=== PATIENT | female | born 1970 | race Caucasian/White ===

== ENCOUNTER → 2016-05-30 | Outpatient (CLI) | payer BC ==
[~2016-05-30] MED LIST: ASPCH81X PO; CHOL20007 PO; GLC/500 PO; LOSA50TA6 PO; METF1TAB85 PO; MULT-506 PO; MXZC25 PO; OMEGCAP2 PO; PRVHFAIN; SERT1TAB72 PO; SERT25TA PO; ZNT/150 PO
== END | disposition home or self-care (01) ==
LOC: C.PAPS 16:30
PROVIDERS: ATTEND Obstetrics & Gynecology
DX: Z01.419 Encounter for gynecological examination (general) (routine) without abnormal findings (principal)

== ENCOUNTER → 2016-06-27 | Outpatient (CLI) | payer BC | END | disposition home or self-care (01) | LOC: C.PAPS 15:18 | PROVIDERS: ATTEND Obstetrics & Gynecology | DX: R87.612 Low grade squamous intraepithelial lesion on cytologic smear of cervix (LGSIL) (principal); R87.610 Atypical squamous cells of undetermined significance on cytologic smear of cervix (ASC-US) ==

== ENCOUNTER → 2016-06-29 | Outpatient (CLI) | payer BC ==
[2016-06-29 18:01] LABS: BLOOD UREA NITROGEN 16 mg/dl (7-18); CREATININE 0.92 mg/dl (0.60-1.20)
== END | disposition home or self-care (01) ==
LOC: C.LAB 17:03
PROVIDERS: ATTEND Obstetrics & Gynecology
DX: R19.00 Intra-abdominal and pelvic swelling, mass and lump, unspecified site (principal)

== ENCOUNTER 2016-07-05 07:52 | Inpatient (IN) | payer BC ==
--- NOTE | 2016-07-01 11:25 | HISTORY & PHYSICAL EXAMINATION ---
DATE OF ADMISSION: 05/30/2016 CHIEF COMPLAINT: Pelvic mass. HISTORY OF PRESENT ILLNESS: The patient is a 46-year-old 3, para 2. She had 1 spontaneous AB. Her general health is complicated by high blood pressure, type 2 diabetes for which she is on medications. had a vasectomy for control. Periods are regular every 28-30 days and lasts for 4-5 days. She has 1 heavy day of bleeding with flooding and cramps are mild. She recently had a low grade Pap smear and we attempted to visualize the cervix in the office and were unable to get the cervix into view. It was suspected at that time that she may have a pelvic mass pushing the cervix into an odd position. She subsequently underwent transvaginal ultrasound where she is shown to have a 6.7 x 6.6 x 4.7 cm mass in the midline behind the uterus, not cystic and appears to be either a chocolate cyst or hemorrhagic corpus luteum. She was also evaluated with a transvaginal CAT scan and the CAT scan showed no intra-abdominal fluid or no abnormal adenopathy and the CAT scan did not show any signs of a pelvic malignancy. She is presently being scheduled for total abdominal hysterectomy, bilateral salpingo-oophorectomy. She has been made aware of the risks of the surgery and the fact that postoperatively she will need to be on estrogen replacement. PAST MEDICAL HISTORY: She has 2 boys in good health. ALLERGIES: SHE IS ALLERGIC TO BACTRIM WHICH GIVES HER RASH. PAST SURGICAL HISTORY: She has had 2 C-sections. She has had her wisdom teeth removed. She had ear surgery. MEDICAL HISTORY: She has history of high blood pressure and type 2 diabetes for which she is on medications. SOCIAL HISTORY: No smoking. No excessive alcohol intake. Works for [employer]. FAMILY HISTORY: Mom at age 84. She had congestive heart failure. She has had a valve replaced. She had pericarditis. Father at age 83 of a myocardial infarction. He had been a smoker. She has 3 half-brothers, 1 half-brother of diabetes at 31 and one half brother is diabetic and he is 67. REVIEW OF SYSTEMS: She does have problems with migraines, no history of frequent or severe ear infections, nosebleed, sore throats, kidney or bladder infections. PHYSICAL EXAMINATION: GENERAL: Well-developed, well-nourished 46-year-old white female, alert, oriented x3 and cooperative in no acute distress, appears stated age. EYES: Conjunctivae are pink, sclerae white, no evidence of jaundice. EARS: Had normal light reflex bilaterally. NOSE: Had normal mucosa. Septum is midline. There were no polyps. THROAT: No erythema or evidence of infection. Teeth are in good state of repair. HEAD: Normocephalic, normal distribution of hair. NECK: Supple. Trachea midline. Thyroid is not enlarged. There is no adenopathy appreciated. Both carotids are of good intensity. CHEST: Clear to auscultation and percussion. No wheezes, rales or rhonchi appreciated. HEART: Had regular rhythm. S1 and S2 are normal. BREAST EXAMINATION: Normal. ABDOMEN: Soft and nontender. PELVIC EXAMINATION: Revealed fullness in the cul-de-sac. MUSCULOSKELETAL EXAMINATION: Revealed no calf tenderness. IMPRESSIONS OF THIS CASE: Hypertension, type 2 diabetes, status post 2 previous C-sections, status post removal of wisdom teeth, status post ear surgery and pelvic mass, suspected endometrioma.
[2016-07-01 11:41] VITALS: BMI 32.0
--- NOTE | 2016-07-01 12:14 | PAT Medication Instructions ---
Service Date July 01, 2016. Current Home Medication List Albuterol (Ventolin Hfa), Unknown Dose for ASTHMA Cholecalciferol (Vitamin D3), 5,000 INTERUNIT PO QAM Losartan Potassium (Cozaar), 50 MG PO QAM Metformin Hcl (Metformin Hcl Er), 750 MG PO QDD Multivitamin (Multivitamin), 1 TAB PO QAM Sertraline (Zoloft), Unknown Dose PO DAILY PRN for Anxiety Triamterene/Hctz (Triamterene/Hctz 37.5-25MG Tab), 1 TAB PO QAM Medication Instructions For Your Scheduled Surgery - Hold the following medications 48 hours prior to surgery: Metformin Hcl (Metformin Hcl Er), 750 MG PO QDD - Hold the following medications the morning of surgery: Triamterene/Hctz (Triamterene/Hctz 37.5-25MG Tab), 1 TAB PO QAM Cholecalciferol (Vitamin D3), 5,000 INTERUNIT PO QAM Losartan Potassium (Cozaar), 50 MG PO QAM Multivitamin (Multivitamin), 1 TAB PO QAM - Take the following medications the morning of surgery with a sip of water OTHERWISE NOTHING TO EAT OR DRINK AFTER MIDNIGHT: Albuterol (Ventolin Hfa), Unknown Dose for ASTHMA (use if needed; BRING TO HOSPITAL) Sertraline (Zoloft), Unknown Dose PO DAILY PRN for Anxiety - Take the following medications as scheduled the night before surgery: Albuterol (Ventolin Hfa), Unknown Dose for ASTHMA If you have any questions please call us at [phone] or [phone] or [phone]
--- NOTE | 2016-07-01 12:55 | DIAGNOSTIC IMAGING REPORT ---
CHEST PREADMISSION(PA/LAT) CLINICAL HISTORY: PAT preoperative evaluation COMPARISON STUDY: No previous studies for comparison. FINDINGS: The bones soft tissues and hemidiaphragms are normal. The cardiomediastinal silhouette is normal. The lungs are clear. The pulmonary vasculature is normal. IMPRESSION: Negative chest. Electronically signed by: Angel Espinosa M.D. 07/01/2016 12:54 PM Dictated Date/Time: 07/01/2016 12:53 PM
[2016-07-01 13:19] LABS: BASO % 0.2 %; BASO ABS # 0.02 K/uL (0-0.2); COMPLETE YES; EOS % 1.1 %; HEMATOCRIT 41.4 % (37-47); IG% 0.1 %; LYMPH ABS # 2.29 K/uL (1.2-3.4); MEAN CORPUSCULAR HEMOGLOBIN 29.4 pg (25-34); MEAN CORPUSCULAR HGB CONC 33.8 g/dl (32-36); MEAN PLATELET VOLUME 10.2 fL (7.4-10.4); MONO % 5.3 %; NEUT % 65.3 %; PLATELET COUNT 263 K/uL (130-400); RED BLOOD COUNT 4.76 M/uL (4.2-5.4); WHITE BLOOD COUNT 8.19 K/uL (4.8-10.8)
[2016-07-01 13:27] LABS: PREG INTERNAL NEGATIVE QC NEG CLEAR BACKGROUND; PREG INTERNAL POSITIVE QC POS CONTROL LINE
[2016-07-01 13:40] LABS: INR 0.9 (0.9-1.1); PARTIAL THROMBOPLASTIN RATIO 0.9
[2016-07-01 14:32] LABS: BUN/CREATININE RATIO 12.3 (10-20); CALCIUM 8.8 mg/dl (8.5-10.1); CREATININE 0.83 mg/dl (0.60-1.20); POTASSIUM 3.6 mmol/L (3.5-5.1)
[~2016-07-05] VITALS: Ht 172.7 cm; Wt 94.8 kg
[2016-07-05] VITALS (8 sets, daily range): BP systolic 131–181; BP diastolic 65–84; PULSE 78–101; TEMP 36.7–36.9; O2SAT 97–99; BMI 32.0
[~2016-07-05 07:52] MED LIST changes: -ASPCH81X PO; +CEFOXITIN IV 2,000 MG in DEXTROSE 5% 50ML 50 ML IV SCH; -GLC/500 PO; +LACTATED RINGER'S 1000ML 1,000 ML IV SCH; -OMEGCAP2 PO; -SERT1TAB72 PO; -ZNT/150 PO
[2016-07-05] MEDS ORDERED: ONDANSETRON INJ 2 MG/ML 2 ML VIAL ONE ×2 (09:08→11:37)
[2016-07-05] MEDS ORDERED: PROPOFOL IV EMULSION 10 MG/ML 20 ML VIAL IV ONE (09:08)
[2016-07-05] MEDS ORDERED: FENTANYL CITRATE INJ 50 MCG/1 ML 2 ML VIAL ONE ×3 (09:08→13:04)
[2016-07-05] MEDS ORDERED: ROCURONIUM BROMIDE 10 MG/ML 5 ML VIAL ONE ×2 (09:08→11:37)
[2016-07-05] MEDS ORDERED: LIDOCAINE HCL 2% 2 ML VIAL (20MG/ML) ONE (09:08)
[2016-07-05] MEDS ORDERED: MIDAZOLAM HCL 1 MG/ML 2ML VIAL ONE (09:08)
[2016-07-05] MEDS ORDERED: NEOSTIGMINE METHYLSULFATE 5 MG/5 ML SYR ONE (09:08)
[2016-07-05] MEDS ORDERED: GLYCOPYRROLATE INJ 0.2 MG/ML VIAL ONE (09:08)
--- NOTE | 2016-07-05 09:08 | History & Physical Bridge Note ---
H&P Re-Evaluation Bridge Note: I have examined the patient, reviewed the History & Physical and in the interval since the performance of the History & Physical I have noted the following changes of clinical significance: No changes noted
[2016-07-05] MEDS ORDERED: ONDANSETRON INJ 2 MG/ML 2 ML VIAL IV PRN (09:15)
[2016-07-05] MEDS ORDERED: HYDROmorphone INJ 2 MG/ML SYR/VIAL IV PRN (09:15)
[2016-07-05] MEDS ORDERED: ATROPINE SULFATE 0.1 MG/ML 5ML SYR IV PRN (09:15)
[2016-07-05] MEDS ORDERED: EpHEDrine SULFATE INJ 50 MG/ML AMP IV PRN (09:15)
[2016-07-05] MEDS ORDERED: PHENYLEPHRINE 100MCG/ML 5ML SYR IV PRN (09:15)
[2016-07-05] MEDS ORDERED: HYDROmorphone INJ 2 MG/ML SYR/VIAL ONE ×2 (11:07→14:16)
[2016-07-05] MEDS ORDERED: SURGICEL ABSORB HEMOSTAT 2IN X 14IN TOP ONE (12:56)
[2016-07-05] MEDS ORDERED: SENNA 8.6 MG TAB PO PRN (13:45)
[2016-07-05] MEDS ORDERED: MAGNESIUM HYDROXIDE SUSP 30 ML UDC PO PRN (13:45)
[2016-07-05] MEDS ORDERED: BISACODYL 10 MG SUPP PR PRN (13:45)
[2016-07-05] MEDS ORDERED: MEPERIDINE HCL 50 MG/ML CARP IV PRN ×2 (13:45)
--- NOTE | 2016-07-05 13:48 | [facility] Post Operative Brief Note ---
Immediate Operative Summary Operative Date July 05, 2016. Pre-Operative Diagnosis Pelvic mass, suspected endometrioma. Post-Operative Diagnosis Same as preop. Procedure(s) Performed Total Abdominal Hysterectomy, Bilateral Salpingo-Oophorectomy Surgeon Dr. Jennings Chrome Plater Surgeon(s) Dr. Shafer Estimated Blood Loss 250 ML Findings large benign cervical mass Specimens F.S. #1: Uterus, cervix, bilateral tubes and ovaries. *Focus mainly on cervix * (sent at 1210) Complication(s) None Disposition Recovery Room / PACU
--- NOTE | 2016-07-05 14:00 | OPERATIVE REPORT ---
DATE OF OPERATION: 07/05/2016 INDICATIONS FOR SURGERY: Large benign cervical lesion. PREOPERATIVE DIAGNOSIS: Benign cervical lesion of uncertain etiology. POSTOPERATIVE DIAGNOSIS: Same, frozen section and exam by the pathologist revealed the lesion to be benign. PROCEDURE: Total abdominal hysterectomy, bilateral salpingo-oophorectomy. SURGEON: Dr. Jennings. GAGE DESIGNER: Dr. Shafer. ESTIMATED BLOOD LOSS: 300 mL. ANESTHESIA: General. OPERATIVE FINDINGS AND PROCEDURE: The patient was brought to the OR table, correctly identified by armband and conversation. Vaginal mucosa was prepped with Betadine prep, Vargas catheter was inserted aseptically in the bladder and connected to gravity drainage. Compression stockings were applied. Lower abdomen was then painted with an alcohol based sterilizing solution, draped in the usual sterile fashion. We looked at the body habitus of the patient and the lesion was deep in the pelvis and felt that we needed to go through a midline incision. Subsequently made a midline incision carried down to the anterior fascia by sharp dissection. Hemostasis was secured by electrocauterization. Peritoneum was carefully raised and entered. Then, we used a Bookwalter retractor to retract the intestines and provide adequate exposure of the pelvic cavity. There were no dense adhesions even though she had had 2 previous sections and ovaries appeared normal. There was a large 5-6 cm bulbous lesion of the cervix which extended really all the way down to the cervical cuff. I started out by isolating the infundibulopelvic ligaments as they came off from the lateral pelvic wall and then doubly ligated distal stump and then ligating the proximal stump cutting the attachment of the ovary free on both sides and ligating the round ligament in the same fashion, 2 distal sutures, 1 proximal suture with a tag. We then opened the peritoneum over the lesion and shelled the lesion outside the peritoneum by blunt and sharp dissection. We eventually identified and tagged the ureter on the left side. We then grabbed the uterine arteries close to the junction of the uterus and the cervix on either side, cut with a stump and then doubly ligated with a chromic gut suture. We advanced the bladder out of the operative field. Some of the anatomy was distorted by the size of the cervix and then carefully slid off the lesion laterally on either side, clamping segments of the cardinal ligament cutting with a stump and ligated with a transfixion suture of chromic catgut, eventually we got into the vaginal cuff on the patient's left side and was able to take the incision around the lesion, cut through the vaginal cuff and thus excised the surgical specimen of large cervical lesion along with the uterus, tubes, and both ovaries. We then tagged the angles of the vaginal cuff with a straight and then ligated the angles of the vaginal cuff to the stumps of the cardinal ligaments on either side, then did a [id number] suture to close the cuff and then did another jewnni-zw-fhehj suture and then ran the rest of the cuff with a continuous chromic gut suture, placed a Bruna drain with a safety pin into the vagina and the other end into the cuff. We had some bleeding on the left pelvic wall, we had to isolate several bleeders then tie and cauterize them. As previously stated ureter on that side was dissected free and located away from any of the suturing. We then used Surgicel to pack the area to create good hemostasis. We then elevated the cuff by bringing down the round ligaments and suture ligating them to the cuff and then we reapproximated the peritoneum with a continuous chromic gut suture. At the end a Bruna drain was in the cul-de-sac. We washed the pelvis clean, removed all packs, pack count was good. We did a careful approximation of the anterior abdominal wall. Peritoneum was closed with a chromic gut suture. Recti muscles were approximated with interrupted [id number] sutures of PDS. SubQ was approximated with a running plain and the skin edges were approximated with a mattress suture of nylon and then the skin edges were approximated with staple clips. I attest to the content of the Intraoperative Record and any orders documented therein. Any exceptio ns are noted below.
--- NOTE | 2016-07-05 14:45 | Anesthesiology Progress Note ---
Anesthesia Post Op Note Date & Time July 05, 2016 at 14:45 Vital Signs Pain Intensity: 1 Vital Signs Past 12 Hours Date Time Temp Pulse Resp B/P Pulse Ox O2 Delivery O2 Flow Rate FiO2 07/05/16 14:42 142/88 07/05/16 14:39 82 10 98 07/05/16 14:39 84 10 07/05/16 14:38 36.6 87 16 142/88 97 Nasal Cannula 2 07/05/16 14:37 149/80 07/05/16 14:34 84 7 07/05/16 14:34 83 7 99 07/05/16 14:33 82 11 07/05/16 14:33 81 11 100 07/05/16 14:32 175/84 07/05/16 14:28 81 11 07/05/16 14:28 81 11 100 07/05/16 14:27 142/84 07/05/16 14:23 83 8 100 07/05/16 14:23 81 8 07/05/16 14:22 167/75 07/05/16 14:18 88 13 100 07/05/16 14:18 87 13 07/05/16 14:17 178/77 07/05/16 14:13 93 19 100 07/05/16 14:13 94 19 07/05/16 14:12 163/84 07/05/16 14:08 78 10 07/05/16 14:08 78 10 100 07/05/16 14:06 175/78 07/05/16 14:03 88 10 07/05/16 14:03 88 10 182/91 100 07/05/16 14:02 188/81 07/05/16 13:58 84 9 100 07/05/16 13:58 85 9 07/05/16 13:57 179/93 07/05/16 13:54 174/89 07/05/16 13:53 92 36 07/05/16 13:53 92 36 99 07/05/16 13:53 37.0 82 12 174/89 100 Mask 10 07/05/16 08:18 36.9 79 18 131/65 97 Room Air Notes Mental Status: alert / awake / arousable, participated in evaluation Pt Amnestic to Procedure: Yes Nausea / Vomiting: adequately controlled Pain: adequately controlled Airway Patency, RR, SpO2: stable & adequate BP & HR: stable & adequate Hydration State: stable & adequate Anesthetic Complications: no major complications apparent
[2016-07-05] MEDS ORDERED: D5W AND LACTATED RINGERS 1,000 ML IV SCH (15:49)
[2016-07-05] MEDS ORDERED: NURSING VERBAL MED ORDER ONE ×2 (16:45→20:00)
[2016-07-05] MEDS: LACTATED RINGER'S 1000ML 1,000 ML IV SCH (17:13)
[2016-07-05] MEDS: ONDANSETRON INJ 2 MG/ML 2 ML VIAL IV PRN ×2 (17:37→23:44)
[2016-07-05] MEDS: KETOROLAC TROMETHAMINE 30 MG/ML VIAL IV. PRN ×2 (17:37→23:45)
[2016-07-05] MEDS ORDERED: ONDANSETRON INJ 2 MG/ML 2 ML VIAL IV ONE (19:45)
[2016-07-05] MEDS ORDERED: NovoLOG PER UNIT CHARGE SC SCH (20:15)
[2016-07-05] MEDS ORDERED: INSULIN ASPART 100 UNITS/ML 3 ML PEN SC SCH (20:15)
--- NOTE | 2016-07-05 20:20 | Medical Consult ---
Consultation Date of Consultation: July 05, 2016. Attending Physician: Carlos Jennings M.D. Reason for Consultation: Dm control History of Present Illness This is a 46 yo f that that is POD0 s/p open total hysterectomy and bilat salpingo oophorectomy for suspicion of endometrioma that we have been requested to assist in her post operative medical management. Patient states that she typically only has to take a single extended release dose of her Metformin in order to control her blood sugars reasonably well. She was originally diagnosed with DM " years ago" . Her blood pressure is also well controlled with her HTN medications losartan and triamterene. she has a history of depression which she is managing currently without any medications. She has no history of any [place]/ Stroke. She is feeling generally well post operatively aside from her nausea. Past Medical/Surgical History Medical Problems: (1) Asthma, Unspecified Status: Chronic (2) Diab Kristin Wo Compl, Type Ii Or Unspec Type, Uncontrolled Status: Chronic (3) Hypertension Nos Status: Chronic (4) Pure Hypercholesterolem Status: Chronic Family History No significant family history Social History Smoking Status: Never Smoker Smokeless Tobacco Use: No Marital Status: Housing Status: lives with family Occupation Status: employed Allergies Coded Allergies: Sulfamethoxazole w/Trimethoprim (Verified Allergy, Mild, rash, 07/05/16) Molds and Smuts (Verified Allergy, Unknown, OUTDOOR MOLD-SNEEZING,COUGHING , 07/05/16) Current Inpatient Medications Current Inpatient Medications Medications (Trade) Dose Ordered Sig/Roz Route Start Time Stop Time Status Last Admin Dose Admin Lactated Ringer's (Lr 1000ml) 1,000 ml @ 15 mls/hr Q24H IV 07/05/16 06:00 07/06/16 05:59 07/05/16 08:50 15 MLS/HR Ketorolac Tromethamine (Toradol Inj) 30 mg Q6H PRN IV. 07/05/16 13:45 07/10/16 13:44 07/05/16 17:37 30 MG Meperidine HCl (Demerol Inj) 50 mg Q4H PRN IV 07/05/16 13:45 07/19/16 13:44 Meperidine HCl (Demerol Inj) 75 mg Q4H PRN IV 07/05/16 13:45 07/19/16 13:44 Oxycodone/ Acetaminophen (Percocet 5-325mg Tab) 1 tab for pain scale 1-5 2 t... Q4H PRN PO 07/05/16 13:45 07/19/16 13:44 Ibuprofen (Motrin Tab) 600 mg Q4H PRN PO 07/05/16 13:45 08/04/16 13:44 Ondansetron HCl (Zofran Inj) 4 mg Q4H PRN IV 07/05/16 13:45 08/04/16 13:44 07/05/16 17:37 4 MG Bisacodyl (Dulcolax Supp) 10 mg DAILY PRN [place] 07/05/16 13:45 08/04/16 13:44 Magnesium Hydroxide (Milk Of Magnesia Susp) 30 ml HS PRN PO 07/05/16 13:45 08/04/16 13:44 Senna (Senokot Tab) 17.2 mg HS PRN PO 07/05/16 13:45 08/04/16 13:44 Losartan Potassium (coZAAR TAB) 50 mg QAM PO 07/06/16 09:00 08/05/16 08:59 Triamterene/HCTZ 1 tab 1 tab QAM PO 07/06/16 09:00 08/05/16 08:59 Lactated Ringer's (Lr 1000ml) 1,000 ml @ 125 mls/hr Q8H IV 07/05/16 17:00 08/04/16 16:59 07/05/16 17:13 125 MLS/HR Multivitamins (Multivitamin Tab) 1 tab QAM PO 07/06/16 09:00 08/05/16 08:59 Insulin Aspart (novoLOG ASPART) SLIDING SCALE G... ACHS SC 07/05/16 22:00 08/04/16 21:59 Insulin Aspart (novoLOG ASPART) 2 units TODAY@2014 [place] 07/05/16 20:15 07/05/16 22:00 Review of Systems Constitutional: No fever Eyes: No worsening of vision Respiratory: No cough, No dyspnea at rest, No dyspnea on exertion, No shortness of breath, No sputum, No wheezing Cardiovascular: No chest pain Abdomen: + nausea, + pain (from wound), + vomiting, No constipation, No diarrhea Musculoskeletal: No joint pain, No muscle pain Psychiatric: No depression symptoms Endocrine: No fatigue Physical Exam Date Time Temp Pulse Resp B/P Pulse Ox O2 Delivery O2 Flow Rate FiO2 07/05/16 19:30 36.7 78 20 134/78 98 Room Air 07/05/16 18:03 36.9 86 16 149/80 99 Nasal Cannula 2.0 07/05/16 16:56 36.9 91 16 162/82 98 Nasal Cannula 2.0 07/05/16 16:00 36.7 95 16 161/84 99 Nasal Cannula 2.0 07/05/16 15:30 36.8 92 16 150/79 98 Nasal Cannula 2.0 07/05/16 15:07 97 Nasal Cannula 2.0 07/05/16 15:07 36.8 101 15 181/80 97 Nasal Cannula 2.0 07/05/16 14:53 96 9 98 07/05/16 14:53 95 9 07/05/16 14:52 129/80 07/05/16 14:50 136/78 07/05/16 14:48 89 10 98 07/05/16 14:48 87 10 07/05/16 14:46 140/80 07/05/16 14:43 86 6 07/05/16 14:43 84 6 98 07/05/16 14:42 142/88 07/05/16 14:39 82 10 98 07/05/16 14:39 84 10 07/05/16 14:38 36.6 87 16 142/88 97 Nasal Cannula 2 07/05/16 14:37 149/80 07/05/16 14:34 84 7 07/05/16 14:34 83 7 99 07/05/16 14:33 82 11 07/05/16 14:33 81 11 100 07/05/16 14:32 175/84 07/05/16 14:28 81 11 07/05/16 14:28 81 11 100 07/05/16 14:27 142/84 07/05/16 14:23 83 8 100 07/05/16 14:23 81 8 07/05/16 14:22 167/75 07/05/16 14:18 88 13 100 07/05/16 14:18 87 13 07/05/16 14:17 178/77 07/05/16 14:13 93 19 100 07/05/16 14:13 94 19 07/05/16 14:12 163/84 07/05/16 14:08 78 10 07/05/16 14:08 78 10 100 07/05/16 14:06 175/78 07/05/16 14:03 88 10 07/05/16 14:03 88 10 182/91 100 07/05/16 14:02 188/81 07/05/16 13:58 84 9 100 07/05/16 13:58 85 9 07/05/16 13:57 179/93 07/05/16 13:54 174/89 07/05/16 13:53 92 36 07/05/16 13:53 92 36 99 07/05/16 13:53 37.0 82 12 174/89 100 Mask 10 07/05/16 08:18 36.9 79 18 131/65 97 Room Air General Appearance: no apparent distress Head: normocephalic, atraumatic Eyes: normal inspection ENT: normal ENT inspection Neck: supple Respiratory/Chest: normal breath sounds, no respiratory distress, no accessory muscle use Cardiovascular: regular rate, rhythm, no murmur Abdomen/GI: normal bowel sounds, + pertinent finding (dressing noted midline, abd is soft to palpation and tender surrounding the incision site) Back: normal inspection Extremities/Musculoskelatal: no calf tenderness, no pedal edema, + pertinent finding (SCD in place) Neurologic/Psych: alert, normal mood/affect, oriented x 3 Skin: normal color, warm/dry, no rash Lymphatic: no adenopathy Laboratory Results Last 24 Hours Test 07/05/16 08:16 07/05/16 14:15 07/05/16 19:43 Bedside Glucose 182 mg/dl 207 mg/dl 259 mg/dl Assessment & Plan This is a 46 yo f POD 0 s/p open ANUP BSO for suspected endometria which we are assisting in post op medical management S/P Open ANUP BSO - pain management per primary team DMII - insulin ISS - metformin held HTN - continue home dose of losartan and Triamterene DVT prophylaxis SCD in place per primary team Additional Copies To Carla Wilde C.R.N.P Assessment and Plan Attending Addendum: I have physically seen and examined this patient, have directed their medical care, have supervised the medical residents activities, and agree with the H&P as noted above, with the following changes: NONE
[2016-07-05] MEDS: INSULIN ASPART 100 UNITS/ML 3 ML PEN SC SCH (22:18)
[2016-07-06] MEDS ORDERED: INSULIN ASPART 100 UNITS/ML 3 ML PEN SC STA (00:20)
[2016-07-06] MEDS ORDERED: NURSING VERBAL MED ORDER ONE (00:30)
[2016-07-06] MEDS: LACTATED RINGER'S 1000ML 1,000 ML IV SCH ×3 (00:34→17:00)
[2016-07-06 04:20] VITALS: BP 109/74; PULSE 89; TEMP 37; O2SAT 98
[2016-07-06] MEDS: KETOROLAC TROMETHAMINE 30 MG/ML VIAL IV. PRN (06:15)
[2016-07-06] MEDS ORDERED: PHARMACY GLYCEMIC MGMT CONSULT PRN (07:07)
[2016-07-06 07:08] LABS: BASO % 0.1 %; BASO ABS # 0.01 K/uL (0-0.2); COMPLETE YES; EOS % 0.1 %; HEMATOCRIT 29.7 % (37-47); IG% 0.3 %; LYMPH % 19.3 %; LYMPH ABS # 2.12 K/uL (1.2-3.4); MEAN CELL VOLUME 87.4 fL (80-100); MEAN CORPUSCULAR HGB CONC 34.3 g/dl (32-36); MEAN PLATELET VOLUME 9.9 fL (7.4-10.4); MONO % 8.2 %; PLATELET COUNT 223 K/uL (130-400); WHITE BLOOD COUNT 10.99 K/uL (4.8-10.8)
[2016-07-06 07:35] VITALS: BP 123/78; PULSE 84; TEMP 36.9; O2SAT 98
[2016-07-06] MEDS: MULTIVITAMIN TAB PO SCH (08:31)
[2016-07-06] MEDS: TRIAMTERENE/HCTZ 37.5/25MG TAB PO SCH (08:31)
[2016-07-06] MEDS: LOSARTAN POTASSIUM 50 MG TAB PO SCH (08:32)
[2016-07-06] MEDS: INSULIN ASPART 100 UNITS/ML 3 ML PEN SC SCH ×4 (08:37→22:31)
[2016-07-06] MEDS ORDERED: GLUCOSE 10 TABS/TUBE PO PRN (10:00)
[2016-07-06] MEDS ORDERED: GLUCOSE 40% GEL 15 GM TUBE PO PRN (10:00)
[2016-07-06] MEDS ORDERED: DEXTROSE 50% 50 ML SYR IV PRN (10:00)
[2016-07-06] MEDS ORDERED: GLUCAGON FOR INJ 1 MG VIAL SQ PRN (10:00)
--- NOTE | 2016-07-06 10:18 | Progress Note ---
Subjective July 06, 2016. Subjective conversation w/ patient Ambulation: limited ambulation Voiding: isbell catheter in place Passing Gas: Yes Diet Tolerance: Clear Liquids Review of Systems Constitutional: + fever Objective Vital Signs Date Time Temp Pulse Resp B/P Pulse Ox O2 Delivery O2 Flow Rate FiO2 07/06/16 07:35 Room Air 07/06/16 07:35 36.9 84 16 123/78 98 Room Air 07/06/16 04:20 37.0 89 16 109/74 98 Room Air 07/05/16 23:50 Room Air 07/05/16 23:50 36.8 86 18 133/81 98 Room Air 07/05/16 19:30 36.7 78 20 134/78 98 Room Air 07/05/16 18:03 36.9 86 16 149/80 99 Nasal Cannula 2.0 07/05/16 16:56 36.9 91 16 162/82 98 Nasal Cannula 2.0 07/05/16 16:00 36.7 95 16 161/84 99 Nasal Cannula 2.0 07/05/16 15:30 36.8 92 16 150/79 98 Nasal Cannula 2.0 07/05/16 15:07 97 Nasal Cannula 2.0 07/05/16 15:07 36.8 101 15 181/80 97 Nasal Cannula 2.0 07/05/16 14:53 96 9 98 07/05/16 14:53 95 9 07/05/16 14:52 129/80 07/05/16 14:50 136/78 07/05/16 14:48 89 10 98 07/05/16 14:48 87 10 07/05/16 14:46 140/80 07/05/16 14:43 86 6 07/05/16 14:43 84 6 98 07/05/16 14:42 142/88 07/05/16 14:39 82 10 98 07/05/16 14:39 84 10 07/05/16 14:38 36.6 87 16 142/88 97 Nasal Cannula 2 07/05/16 14:37 149/80 07/05/16 14:34 84 7 07/05/16 14:34 83 7 99 07/05/16 14:33 82 11 07/05/16 14:33 81 11 100 07/05/16 14:32 175/84 07/05/16 14:28 81 11 07/05/16 14:28 81 11 100 07/05/16 14:27 142/84 07/05/16 14:23 83 8 100 07/05/16 14:23 81 8 07/05/16 14:22 167/75 07/05/16 14:18 88 13 100 07/05/16 14:18 87 13 07/05/16 14:17 178/77 07/05/16 14:13 93 19 100 07/05/16 14:13 94 19 07/05/16 14:12 163/84 07/05/16 14:08 78 10 07/05/16 14:08 78 10 100 07/05/16 14:06 175/78 07/05/16 14:03 88 10 07/05/16 14:03 88 10 182/91 100 07/05/16 14:02 188/81 07/05/16 13:58 84 9 100 07/05/16 13:58 85 9 07/05/16 13:57 179/93 07/05/16 13:54 174/89 07/05/16 13:53 92 36 07/05/16 13:53 92 36 99 07/05/16 13:53 37.0 82 12 174/89 100 Mask 10 Physical Exam General Appearance: WELL-APPEARING Respiratory/Chest: lungs clear Abdomen: normal bowel sounds, non tender Incision Description: Clean, Dry & Intact Extremities: no pedal edema, no calf tenderness Laboratory Results Last 24 Hours Test 07/05/16 14:15 07/05/16 19:43 07/05/16 22:04 07/06/16 00:09 Bedside Glucose 207 mg/dl 259 mg/dl 243 mg/dl 223 mg/dl Test 07/06/16 04:20 07/06/16 06:50 07/06/16 07:41 Bedside Glucose 192 mg/dl 176 mg/dl White Blood Count 10.99 K/uL Red Blood Count 3.40 M/uL Hemoglobin 10.2 g/dL Hematocrit 29.7 % Mean Corpuscular Volume 87.4 fL Mean Corpuscular Hemoglobin 30.0 pg Mean Corpuscular Hemoglobin Concent 34.3 g/dl Platelet Count 223 K/uL Mean Platelet Volume 9.9 fL Neutrophils (%) (Auto) 72.0 % Lymphocytes (%) (Auto) 19.3 % Monocytes (%) (Auto) 8.2 % Eosinophils (%) (Auto) 0.1 % Basophils (%) (Auto) 0.1 % Neutrophils # (Auto) 7.92 K/uL Lymphocytes # (Auto) 2.12 K/uL Monocytes # (Auto) 0.90 K/uL Eosinophils # (Auto) 0.01 K/uL Basophils # (Auto) 0.01 K/uL RDW Standard Deviation 45.0 fL RDW Coefficient of Variation 14.2 % Immature Granulocyte % (Auto) 0.3 % Immature Granulocyte # (Auto) 0.03 K/uL Nucleated RBC Absolute Count (auto) 0.05 K/uL Nucleated Red Blood Cells % 0.5 % Assessment and Plan Problem List Medical Problems: (1) Asthma, Unspecified Status: Chronic (2) Diab Kristin Wo Compl, Type Ii Or Unspec Type, Uncontrolled Status: Chronic (3) Hypertension Nos Status: Chronic (4) Pure Hypercholesterolem Status: Chronic Post-Op Day#: 1
[2016-07-06] MEDS: INSULIN GLARGINE SOLOSTAR 100 UNITS/ML 3 ML PEN SC SCH (10:52)
[2016-07-06 11:14] VITALS: BMI 31.8
[2016-07-06 11:26] VITALS: BP 122/76; PULSE 80; TEMP 37; O2SAT 98
[2016-07-06] MEDS: OXYCODONE/ACETAMINOPHEN 5-325 TAB PO PRN ×4 (11:37→23:59)
--- NOTE | 2016-07-06 14:41 | Pharmacy Progress Note ---
Glycemic Control Intl Consult Date of Service July 06, 2016. Scope Glycemic Pharmacist consulted by Dr Lacey on 07/06/16 for glycemic control and to write orders per [facility] inpatient glycemic control protocol Objective Weight (Kilograms): 94.800 Accuchecks BSG (last 24hrs): Test 07/05/16 19:43 07/05/16 22:04 07/06/16 00:09 07/06/16 04:20 Bedside Glucose 259 mg/dl (70-90) 243 mg/dl (70-90) 223 mg/dl (70-90) 192 mg/dl (70-90) Test 07/06/16 07:41 07/06/16 11:22 Bedside Glucose 176 mg/dl (70-90) 136 mg/dl (70-90) Laboratory Data (last 24hrs) Test 07/06/16 06:50 White Blood Count 10.99 K/uL Red Blood Count 3.40 M/uL Hemoglobin 10.2 g/dL Hematocrit 29.7 % Mean Corpuscular Volume 87.4 fL Mean Corpuscular Hemoglobin 30.0 pg Mean Corpuscular Hemoglobin Concent 34.3 g/dl Platelet Count 223 K/uL Mean Platelet Volume 9.9 fL Neutrophils (%) (Auto) 72.0 % Lymphocytes (%) (Auto) 19.3 % Monocytes (%) (Auto) 8.2 % Eosinophils (%) (Auto) 0.1 % Basophils (%) (Auto) 0.1 % Neutrophils # (Auto) 7.92 K/uL Lymphocytes # (Auto) 2.12 K/uL Monocytes # (Auto) 0.90 K/uL Eosinophils # (Auto) 0.01 K/uL Basophils # (Auto) 0.01 K/uL Recent Pertinent Medications Outpatient Anti-diabetic Regimen: * Metformin 750 mg ER daily * A1c =- orderer Risk Factors for Insulin Resistance: * Recent Surgery - POD #1 hysterectomy * Diet: T2DM Assessment & Plan ASSESSMENT: * ADA & AACE recommend a goal blood sugar range 140-180 mg/dl for the majority of critically ill & non-critically ill patients. However, more stringent targets may be selected in individual cases. * 46 year old T2DM female with hyperglycemia s/p hysterectomy - unknown outpatient control, A1c ordered * Pt is maintained on oral antidiabetic agents as an outpatient * Will hold oral agents for admission and utilize SQ basal bolus insulin regimen which is the recommended regimen for inpatient glycemic control. * Will initiate weight based insulin dosing for insulin narda patient and titrate based on BSG trends. PLAN FOR INPATIENT GLYCEMIC CONTROL: * Holding metformin * Basal insulin with LANTUS 20 units SQ daily * Correctional Insulin with NOVOLOG per scale ACHS * Goal Range: Low 120 mg/dL - High 160 mg/dL * Correction Factor: 25 mg/dL/unit * Nutritional / Prandial insulin per carb ratio of 1 unit per 10 grams CHO consumed * Please note that the plan above was derived based on current level of insulin resistance and hospital stress. These recommendations are appropriate for inpatient admission only. Plan of care upon discharge will need to be reassessed to avoid potential outpatient hypo/hyperglycemia. Thank you.
[2016-07-06 15:35] VITALS: BP 134/77; PULSE 86; TEMP 36.9; O2SAT 100
--- NOTE | 2016-07-06 16:15 | Progress Note ---
Progress Note Date of Service July 06, 2016. Progress Note blood pressure and glucose reviewed, all acceptable, glycemic management consult engaged.
[2016-07-06] MEDS: IBUPROFEN 600 MG TAB PO PRN (17:44)
[2016-07-06 19:50] VITALS: BP 112/70; PULSE 86; TEMP 37.2; O2SAT 96
[2016-07-06 23:45] VITALS: BP 112/72; PULSE 72; TEMP 36.5; O2SAT 96
[2016-07-07 04:10] VITALS: BP 131/82; PULSE 86; TEMP 36.9; O2SAT 96
[2016-07-07] MEDS: OXYCODONE/ACETAMINOPHEN 5-325 TAB PO PRN ×5 (04:18→21:51)
[2016-07-07 07:15] LABS: BASO % 0.2 %; BASO ABS # 0.02 K/uL (0-0.2); COMPLETE YES; EOS % 1.5 %; HEMATOCRIT 31.7 % (37-47); IG% 0.1 %; LYMPH % 10.9 %; LYMPH ABS # 1.19 K/uL (1.2-3.4); MEAN CORPUSCULAR HEMOGLOBIN 28.9 pg (25-34); MEAN CORPUSCULAR HGB CONC 32.5 g/dl (32-36); MEAN PLATELET VOLUME 9.7 fL (7.4-10.4); MONO % 5.5 %; NEUT % 81.8 %; PLATELET COUNT 194 K/uL (130-400); RED BLOOD COUNT 3.56 M/uL (4.2-5.4); WHITE BLOOD COUNT 10.88 K/uL (4.8-10.8)
[2016-07-07 07:50] LABS: ESTIMATED AVERAGE GLUCOSE 171 mg/dl; HA1C FLAG Normal (Normal)
[2016-07-07 08:00] VITALS: BP 118/79; PULSE 80; TEMP 36.8; O2SAT 97
[2016-07-07] MEDS: INSULIN ASPART 100 UNITS/ML 3 ML PEN SC SCH ×4 (08:21→22:30)
[2016-07-07] MEDS: LOSARTAN POTASSIUM 50 MG TAB PO SCH (08:24)
[2016-07-07] MEDS: MULTIVITAMIN TAB PO SCH (08:24)
[2016-07-07] MEDS: TRIAMTERENE/HCTZ 37.5/25MG TAB PO SCH (08:24)
--- NOTE | 2016-07-07 08:42 | Progress Note ---
Subjective Jul 07, 2016. Subjective conversation w/ patient Ambulation: ambulating normally Voiding: no voiding problems, isbell catheter in place Passing Gas: Yes Diet Tolerance: Regular Diet Review of Systems Constitutional: + fever Objective Vital Signs Date Time Temp Pulse Resp B/P (MAP) Pulse Ox O2 Delivery O2 Flow Rate FiO2 07/07/16 04:10 36.9 86 18 131/82 (98) 96 Room Air 07/06/16 23:45 96 Room Air 07/06/16 23:45 36.5 72 20 112/72 (85) 96 Room Air 07/06/16 19:50 37.2 86 20 112/70 (84) 96 Room Air 07/06/16 15:40 Room Air 07/06/16 15:35 36.9 86 16 134/77 (96) 100 Room Air 07/06/16 11:26 37.0 80 16 122/76 (91) 98 Room Air Physical Exam General Appearance: WELL-APPEARING Respiratory/Chest: lungs clear Abdomen: normal bowel sounds, non tender Incision Description: Clean, Dry & Intact Extremities: no pedal edema, no calf tenderness Laboratory Results Last 24 Hours Test 07/06/16 11:22 07/06/16 17:13 07/06/16 22:08 07/07/16 07:00 Bedside Glucose 136 mg/dl 156 mg/dl 169 mg/dl White Blood Count 10.88 K/uL Red Blood Count 3.56 M/uL Hemoglobin 10.3 g/dL Hematocrit 31.7 % Mean Corpuscular Volume 89.0 fL Mean Corpuscular Hemoglobin 28.9 pg Mean Corpuscular Hemoglobin Concent 32.5 g/dl Platelet Count 194 K/uL Mean Platelet Volume 9.7 fL Neutrophils (%) (Auto) 81.8 % Lymphocytes (%) (Auto) 10.9 % Monocytes (%) (Auto) 5.5 % Eosinophils (%) (Auto) 1.5 % Basophils (%) (Auto) 0.2 % Neutrophils # (Auto) 8.90 K/uL Lymphocytes # (Auto) 1.19 K/uL Monocytes # (Auto) 0.60 K/uL Eosinophils # (Auto) 0.16 K/uL Basophils # (Auto) 0.02 K/uL RDW Standard Deviation 46.6 fL RDW Coefficient of Variation 14.2 % Immature Granulocyte % (Auto) 0.1 % Immature Granulocyte # (Auto) 0.01 K/uL Estimated Average Glucose 171 mg/dl Hemoglobin A1c 7.6 % Test 07/07/16 07:45 Bedside Glucose 199 mg/dl Assessment and Plan Problem List Medical Problems: (1) Asthma, Unspecified Status: Chronic (2) Diab Kristin Wo Compl, Type Ii Or Unspec Type, Uncontrolled Status: Chronic (3) Hypertension Nos Status: Chronic (4) Pure Hypercholesterolem Status: Chronic Post-Op Day#: 2 Continue Routine Care: wang drain with safety removed from vagina
[2016-07-07] MEDS: INSULIN GLARGINE SOLOSTAR 100 UNITS/ML 3 ML PEN SC SCH (09:04)
[2016-07-07 10:14] VITALS: Ht 172.7 cm; Wt 94.8 kg
[2016-07-07] MEDS: IBUPROFEN 600 MG TAB PO PRN ×2 (10:31→19:16)
[2016-07-07 15:50] VITALS: BP 115/75; PULSE 74; TEMP 37.1; O2SAT 98
[2016-07-07 20:45] VITALS: BP 113/71; PULSE 74; TEMP 37.4; O2SAT 98
--- NOTE | 2016-07-07 22:32 | Progress Note ---
Progress Note Date of Service Jul 07, 2016. Progress Note Called to evaluate pt with sudden onset of chills S; pt has completed 2nd PRBC. has chills, nausea and vomiting X1. temp is 39.0. no flushing, SOB or chest pain.pt had no problems after 1st PRBC O; Stable BP [id number] R/R/R Lung; CTA bilat Abd; NT. ND +Bs Ext; No C/C/E A/P Anemia. - completed 2 PRBC Fever ; CBC, CMP and blood culx ordered Medicine consult placed spoke to Dr Egan
[2016-07-08 00:30] VITALS: BP 108/72; PULSE 72; TEMP 36.9; O2SAT 97
[2016-07-08] MEDS: OXYCODONE/ACETAMINOPHEN 5-325 TAB PO PRN ×3 (03:02→11:19)
[2016-07-08 03:10] VITALS: BP 130/86; PULSE 88; TEMP 36.6; O2SAT 98
[2016-07-08] MEDS ORDERED: BENZOCAINE 20% AER SPR 82.5 GM CAN EXT PRN (04:30)
[2016-07-08] MEDS ORDERED: HYDROCORTISONE ACETATE 25 MG SUPP PR PRN (04:30)
[2016-07-08] MEDS ORDERED: ACETAMINOPHEN/CODEINE 300/30MG TAB PO PRN ×2 (04:30)
[2016-07-08] MEDS ORDERED: SUPERCREAM 0.870 % 15GM JAR EXT PRN (04:30)
[2016-07-08] MEDS ORDERED: IBUPROFEN 600 MG TAB PO PRN (04:30)
[2016-07-08] MEDS ORDERED: OXYCODONE/ACETAMINOPHEN 5-325 TAB PO PRN (04:30)
[2016-07-08] MEDS ORDERED: OXYTOCIN 30 UNITS/500ML NSS IV PRN (04:30)
[2016-07-08 07:43] VITALS: BP 128/80; PULSE 73; TEMP 36.9; O2SAT 99
[2016-07-08] MEDS: INSULIN ASPART 100 UNITS/ML 3 ML PEN SC SCH ×2 (07:44→08:30)
[2016-07-08] MEDS: MULTIVITAMIN TAB PO SCH (08:32)
[2016-07-08] MEDS: LOSARTAN POTASSIUM 50 MG TAB PO SCH (08:32)
[2016-07-08] MEDS: TRIAMTERENE/HCTZ 37.5/25MG TAB PO SCH (08:32)
[2016-07-08] MEDS ORDERED: PRENATAL VITAMIN TAB PO SCH (09:00)
[2016-07-08] MEDS ORDERED: FERROUS SULFATE 325 MG TAB PO SCH (09:00)
[2016-07-08] MEDS ORDERED: DOCUSATE SODIUM 100 MG CAP PO SCH (09:00)
[2016-07-08] MEDS: INSULIN GLARGINE SOLOSTAR 100 UNITS/ML 3 ML PEN SC SCH (09:49)
[2016-07-08] MEDS: IBUPROFEN 600 MG TAB PO PRN (10:01)
--- NOTE | 2016-07-08 10:14 | Progress Note ---
Subjective Jul 08, 2016. Subjective conversation w/ patient Ambulation: ambulating normally Voiding: no voiding problems, isbell catheter in place Passing Gas: Yes Diet Tolerance: Regular Diet Review of Systems Constitutional: + fever Objective Vital Signs Date Time Temp Pulse Resp B/P (MAP) Pulse Ox O2 Delivery O2 Flow Rate FiO2 07/08/16 07:43 36.9 73 16 128/80 (96) 99 Room Air 07/08/16 03:10 36.6 88 20 130/86 (101) 98 Room Air 07/08/16 00:30 36.9 72 16 108/72 (84) 97 Room Air 07/08/16 00:30 97 Room Air 07/07/16 20:45 37.4 74 16 113/71 (85) 98 Room Air 07/07/16 15:50 37.1 74 20 115/75 (88) 98 Room Air 07/07/16 15:50 98 Room Air Physical Exam General Appearance: WELL-APPEARING Respiratory/Chest: lungs clear Abdomen: normal bowel sounds, non tender Incision Description: Clean, Dry & Intact Extremities: no pedal edema, no calf tenderness Laboratory Results Last 24 Hours Test 07/07/16 11:31 07/07/16 17:03 07/07/16 22:41 07/08/16 07:40 Bedside Glucose 160 mg/dl 123 mg/dl 152 mg/dl 165 mg/dl Assessment and Plan Problem List Medical Problems: (1) Asthma, Unspecified Status: Chronic (2) Diab Kristin Wo Compl, Type Ii Or Unspec Type, Uncontrolled Status: Chronic (3) Hypertension Nos Status: Chronic (4) Pure Hypercholesterolem Status: Chronic Post-Op Day#: 3
--- NOTE | 2016-07-08 10:17 | Discharge Instructions ---
Discharge Instructions Date of Service Jul 08, 2016. Admission Reason for Admission: Abdominal Mass Discharge Discharge Diagnosis / Problem: large cervical cyst Discharge Goals Goal(s): Routine recovery after surgery Activity Recommendations Activity Limitations: as noted below ACTIVITY RECOMMENDATIONS: * Gradual return to full activity over next 2-3 weeks. * No heavy lifting over next 2-3 weeks. * Nothing in the vagina (no intercourse, tampons, or douching) for 4 weeks * You may walk up and down steps as necessary. * You may drive a car in 2 weeks. * Hot shower or tub bath daily. SPECIAL CARE INSTRUCTIONS: * Check temperature twice daily for one week. Report any elevation over 100.4 degrees Fahrenheit (38.0 degrees Celsius). * Call your doctor if bleeding becomes heavier than the heaviest part of your period - saturating a sanitary pad within an hour. * If you develop a red, hard, warm swollen lump on your incision or if you develop any separation of or drainage from your incision, notify your doctor. . Current Hospital Diet Patient's current hospital diet: Diabetes Type 2 Diet Discharge Diet Recommended Diet: Regular Diet Procedures Procedures Performed: Total Abdominal Hysterectomy, Bilateral Salpingo-Oophorectomy Pending Studies Studies pending at discharge: no Laboratory Results Hemoglobin A1c Test 07/07/16 07:00 Range/Units Estimated Average Glucose 171 mg/dl Hemoglobin A1c 7.6 H 4.5-5.6 % Medical Emergencies . Who to Call and When: Medical Emergencies: If at any time you feel your situation is an emergency, please call 911 immediately. . Non-Emergent Contact Non-Emergency issues call your: Integration Architect Call Non-Emergent contact if: temperature is above 100.5 . . "Provider Documentation" section prepared by Carlos Jennings. . VTE Core Measure Inpt VTE Proph given/why not?: Treatment not indicated
--- NOTE | 2016-07-08 10:46 | DISCHARGE SUMMARY ---
DATE OF DISCHARGE: 07/08/2016. Mrs. Durham was admitted with a large lesion of the cervix. It was evaluated preoperatively with a CAT scan and also ultrasound and it was felt to be a large benign cervical cyst. The day of admission she was taken to the OR where secondary to her body habitus, we did a midline incision. We had to use a Bookwalter retractor and the surgery was technically very difficult, took close to 3 hours. At this time, we removed the cyst intact and along with the uterus, cervix, both tubes and both ovaries. [place] drain was placed in the vagina. The patient did receive prophylactic antibiotics. Postoperatively, she did well. Bowel sounds returned within 24 hours. Her blood sugars were higher than were acceptable. A consult was obtained with the hospitalist and he proceeded to use insulin coverage in order to get the sugars down into an acceptable range. Other than that, she had a smooth postoperative recovery. Bruna drain was removed from the vagina on the second postoperative day. She remained afebrile throughout her whole postoperative course. Her preoperative hemoglobin was 14.0, hematocrit 41.4. Postoperatively, hemoglobin fell to 10.3, hematocrit 31.7. At the time of discharge, she was ambulating well, eating well. She had prescriptions for Percocet for pain control and estradiol 2 mg for estrogen replacement. She was instructed to return to the office the following week for staple removal.
[2016-07-08 12:35] VITALS: BP 128/80; PULSE 73; TEMP 36.9; O2SAT 99
[2016-07-09] MEDS ORDERED: BISACODYL 5 MG TABEC PO SCH (20:00)
[2016-07-10] MEDS ORDERED: BISACODYL 10 MG SUPP PR PRN (07:00)
== END 2016-07-08 12:10 | disposition home or self-care (01) | DRG 743 ==
LOC: ENRESERVDT → ENRESERVTM → C.ACU 07:52 → C.MS4N 13:45
PROVIDERS: ADMIT Obstetrics & Gynecology; ATTEND Obstetrics & Gynecology
PROC: 0UT90ZZ Resection of Uterus, Open Approach (ICD-10-PCS; principal; 2016-07-05 10:00)
PROC: 0UT20ZZ Resection of Bilateral Ovaries, Open Approach (ICD-10-PCS; principal; 2016-07-05 10:00)
PROC: 0UT70ZZ Resection of Bilateral Fallopian Tubes, Open Approach (ICD-10-PCS; principal; 2016-07-05 10:00)
DX: D26.0 Other benign neoplasm of cervix uteri (principal); J45.909 Unspecified asthma, uncomplicated; E11.9 Type 2 diabetes mellitus without complications; I10 Essential (primary) hypertension; E78.00 Pure hypercholesterolemia, unspecified; D64.9 Anemia, unspecified

== ENCOUNTER → 2016-07-15 | Outpatient (CLI) | payer BC ==
[~2016-07-15] MED LIST changes: -CEFOXITIN IV 2,000 MG in DEXTROSE 5% 50ML 50 ML IV SCH; -LACTATED RINGER'S 1000ML 1,000 ML IV SCH
== END | disposition home or self-care (01) ==
LOC: C.LABPVFM 13:47
PROVIDERS: ATTEND Nurse Practitioner
DX: R19.7 Diarrhea, unspecified (principal)

== ENCOUNTER → 2016-07-20 | Outpatient (CLI) | payer BC ==
--- NOTE | 2016-07-20 13:28 | MAMMOGRAPHY REPORT ---
BILATERAL DIGITAL SCREENING MAMMOGRAM TOMOSYNTHESIS WITH CAD: 07/20/2016 CLINICAL HISTORY: Routine screening. Patient has no complaints. TECHNIQUE: Breast tomosynthesis in addition to standard 2D mammography was performed. Current study was also evaluated with a Computer Aided Detection (CAD) system. COMPARISON: Comparison is made to exams dated: 10/16/2014 mammogram, 09/25/2012 mammogram, 05/05/2011 m ammogram, 04/21/2010 mammogram, and 04/13/2009 mammogram - [facility]. BREAST COMPOSITION: There are scattered areas of fibroglandular density in both breasts. FINDINGS: No suspicious masses, calcifications, or areas of architectural distortion are noted in ei ther breast. There has been no significant interval change compared to prior exams. Nodular 6 mm asy mmetry seen within the left lateral breast on the cc view is stable compared to prior exams dating ba ck to at least 2009, and considered benign given long-term stability. IMPRESSION: ACR BI-RADS CATEGORY 2: BENIGN There is no mammographic evidence of malignancy. A 1 year screening mammogram is recommended. The pa tient will receive written notification of the results. Approximately 10% of breast cancers are not detected with mammography. A negative mammographic report should not delay biopsy if a clinically suggestive mass is present. Addie Holland M.D. /:07/20/2016 08:47:35 Company Controller: Darlene Weathers RT(R)(M), [facility] letter sent: Normal 1/2 BI-RADS Code: ACR BI-RADS Category 2: Benign
== END | disposition home or self-care (01) ==
LOC: C.MAMM 08:20
PROVIDERS: ATTEND Obstetrics & Gynecology
DX: Z12.31 Encounter for screening mammogram for malignant neoplasm of breast (principal)

== ENCOUNTER → 2016-11-09 | Outpatient (CLI) | payer BC ==
[2016-11-09 13:03] LABS: BLOOD UREA NITROGEN 15 mg/dl (7-18); BUN/CREATININE RATIO 18.8 (10-20); CALCIUM 9.5 mg/dl (8.5-10.1); CARBON DIOXIDE 29 mmol/L (21-32); CHLORIDE 101 mmol/L (98-107); CREATININE 0.78 mg/dl (0.60-1.20); GLUCOSE 133 mg/dl (70-99); SODIUM 138 mmol/L (136-145)
[2016-11-09 13:07] LABS: CHOLESTEROL 192 mg/dl (0-200); CHOLESTEROL/HDL RATIO 4.3; HDL CHOLESTEROL 45 mg/dl; LDL CHOLESTEROL CALCULATED 118 mg/dl; TRIGLYCERIDES 147 mg/dl (0-150); VERY LOW DENSITY LIPOPROT CALC 29 mg/dl
== END | disposition home or self-care (01) ==
LOC: C.LABPVFM 07:26
PROVIDERS: ATTEND Nurse Practitioner
DX: E11.9 Type 2 diabetes mellitus without complications (principal); I10 Essential (primary) hypertension; E78.2 Mixed hyperlipidemia

== ENCOUNTER → 2017-06-23 | Outpatient (CLI) | payer BC ==
[2017-06-23 13:38] LABS: ALBUMIN 3.5 gm/dl (3.4-5.0); ALKALINE PHOSPHATASE 77 U/L (45-117); ALT/SGPT 29 U/L (12-78); AST/SGOT 18 U/L (15-37); BLOOD UREA NITROGEN 13 mg/dl (7-18); CALCIUM 8.7 mg/dl (8.5-10.1); CARBON DIOXIDE 29 mmol/L (21-32); CHOLESTEROL 135 mg/dl (0-200); GLUCOSE 126 mg/dl (70-99); LDL CHOLESTEROL CALCULATED 70 mg/dl; SODIUM 137 mmol/L (136-145); TOTAL PROTEIN 7.3 gm/dl (6.4-8.2)
[2017-06-23 13:45] LABS: HEMOGLOBIN A1C 6.4 % (4.5-5.6)
[2017-06-23 13:47] LABS: CREATININE RANDOM URINE < 13.0 mg/dl
== END | disposition home or self-care (01) ==
LOC: C.LABPVFM 07:43
PROVIDERS: ATTEND Physician Assistant
DX: E11.9 Type 2 diabetes mellitus without complications (principal)

== ENCOUNTER → 2017-09-11 | Outpatient (CLI) | payer BC | END | disposition home or self-care (01) | LOC: C.PAPS 18:13 | PROVIDERS: ATTEND Obstetrics & Gynecology | DX: Z01.419 Encounter for gynecological examination (general) (routine) without abnormal findings (principal) ==

== ENCOUNTER → 2017-09-29 | Outpatient (CLI) | payer BC ==
--- NOTE | 2017-10-02 13:56 | MAMMOGRAPHY REPORT ---
BILATERAL DIGITAL SCREENING MAMMOGRAM TOMOSYNTHESIS WITH CAD: 09/29/2017 CLINICAL HISTORY: Routine screening. Patient has no complaints. TECHNIQUE: Breast tomosynthesis in addition to standard 2D mammography was performed. Current study w as also evaluated with a Computer Aided Detection (CAD) system. COMPARISON: Comparison is made to exams dated: 07/20/2016 mammogram, 10/16/2014 mammogram, 09/25/2012 m ammogram, 04/21/2010 mammogram, and 04/13/2009 mammogram - [facility]. BREAST COMPOSITION: There are scattered areas of fibroglandular density in both breasts. FINDINGS: No suspicious masses, calcifications, or areas of architectural distortion are noted in either breast . There has been no significant interval change compared to prior exams. IMPRESSION: ACR BI-RADS CATEGORY 1: NEGATIVE There is no mammographic evidence of malignancy. A 1 year screening mammogram is recommended.( 019) The patient will receive written notification of the results. Some breast cancers are not detected with mammography. A negative mammographic report should not errol y biopsy if a clinically suggestive mass is present. Addie Holland M.D. ah/:09/29/2017 15:19:15 Equalizer Operator: RT Christine(Tyrone)(M), [facility] letter sent: Normal 1/2 BI-RADS Code: ACR BI-RADS Category 1: Negative
== END | disposition home or self-care (01) ==
LOC: C.MAMM 14:36
PROVIDERS: ATTEND Obstetrics & Gynecology
DX: Z12.31 Encounter for screening mammogram for malignant neoplasm of breast (principal)